=== PATIENT | male | born 1980 | race Caucasian/White ===

== ENCOUNTER 2017-08-19 08:22 | Outpatient (CLI) | payer OTHER ==
--- NOTE | 2017-08-19 10:39 | RAD ---
LUMBAR SPINE THREE VIEWS: History: Back pain. FINDINGS: Lumbar vertebrae maintain normal height and alignment. Disc spaces are preserved. No evidence of spon dylolisthesis. No significant degenerative change. IMPRESSION: Unremarkable lumbar spine. POS: MARIAH
--- NOTE | 2017-08-19 10:46 | RAD ---
FOUR VIEWS LEFT KNEE: Comparison: None. History: Left knee pain after the knee gave way while carrying groceries. FINDINGS: Four views of the left knee shows no evidence of acute fracture or dislocation. No knee effusion is s een. No degenerative changes are present. IMPRESSION: No significant left knee abnormality. POS: JOHAN
== END 2017-08-19 08:23 | disposition home or self-care (01) ==
LOC: NAV RAD 08:22
PROVIDERS: ATTEND Family Medicine
DX: M12.562 Traumatic arthropathy, left knee (principal); M54.5 Low back pain; G89.29 Other chronic pain
CPT/HCPCS: 72100